=== PATIENT | male | born 1975 | race African-American/Black ===

== ENCOUNTER 2016-04-04 15:43 | Inpatient (IN) | payer MEDICARE, MEDICAID ==
[~2016-04-04] VITALS: Ht 170.2 cm; Wt 80.3 kg
[~2016-04-04 15:43] MED LIST: CHOL10002 PO; OLAN7.5T2 PO
[2016-04-04 17:12] VITALS: BP 104/60
[2016-04-04] MEDS ORDERED: HALOPERIDOL 5 MG TABLET PO PRN (17:15)
[2016-04-04] MEDS ORDERED: LORazepam 2 MG TABLET PO PRN (17:15)
[2016-04-04] MEDS ORDERED: -PHARMACY VACCINE NOTE- MISC ONE ×2 (19:45)
[2016-04-04] MEDS: DIVALPROEX SODIUM 500 MG DR TABLET PO SCH (20:44)
[2016-04-04] MEDS: OLANZapine 7.5 MG TABLET PO SCH (20:45)
[2016-04-05 07:00] VITALS: BP 119/60
[2016-04-05] MEDS: DIVALPROEX SODIUM 500 MG DR TABLET PO SCH ×2 (08:33→16:30)
[2016-04-05] MEDS ORDERED: BACITRACIN 28.4 GM OINTMENT TP PRN (10:15)
[2016-04-05] MEDS ORDERED: ONDANSETRON HCL 4 MG TABLET PO PRN (10:15)
[2016-04-05] MEDS ORDERED: MAG HYDROX/AL HYDROX/SIMETH ES 30 ML SUSPENSION UDCUP PO PRN (10:15)
[2016-04-05] MEDS ORDERED: IBUPROFEN 600 MG TABLET PO PRN (10:15)
[2016-04-05] MEDS ORDERED: MAGNESIUM HYDROXIDE SUSPENSION 30 ML UDCUP PO PRN (10:15)
[2016-04-05] MEDS ORDERED: LOPERAMIDE HCL 2 MG CAPSULE PO PRN (10:15)
[2016-04-05] MEDS ORDERED: BENZOCAINE/MENTHOL LOZENGE MM PRN (10:15)
[2016-04-05] MEDS ORDERED: CloNIDine HCL 0.1 MG TABLET PO PRN (10:15)
[2016-04-05] MEDS ORDERED: PETROLATUM,WHITE 71 GM JELLY TP PRN (10:15)
[2016-04-05] MEDS ORDERED: ACETAMINOPHEN 325 MG TABLET PO PRN (10:15)
[2016-04-05] MEDS ORDERED: ALBUTEROL SULFATE HFA 90 MCG/PUFF 8 GM INHALER IH PRN (10:15)
[2016-04-05 16:04] VITALS: BP 118/52
[2016-04-05] MEDS: OLANZapine 7.5 MG TABLET PO SCH (20:47)
[2016-04-06 02:15] VITALS: BP 108/60
[2016-04-06] MEDS: DIVALPROEX SODIUM 500 MG DR TABLET PO SCH ×2 (09:05→16:43)
[2016-04-06 16:12] VITALS: BP 100/60
[2016-04-06] MEDS: OLANZapine 7.5 MG TABLET PO SCH (20:21)
[2016-04-07 02:12] VITALS: BP 101/60
[2016-04-07 08:38] VITALS: BP 105/61
[2016-04-07] MEDS: DIVALPROEX SODIUM 500 MG DR TABLET PO SCH ×2 (09:25→16:20)
[2016-04-07 16:38] VITALS: BP 102/81
[2016-04-07] MEDS: OLANZapine 7.5 MG TABLET PO SCH (20:15)
[2016-04-07] MEDS: ZOLPIDEM TARTRATE 10 MG TABLET PO PRN (21:22)
[2016-04-08 06:57] VITALS: BP 108/61
[2016-04-08 08:35] VITALS: BP 104/61
[2016-04-08] MEDS: DIVALPROEX SODIUM 500 MG DR TABLET PO SCH ×2 (09:12→16:28)
[2016-04-08 16:10] VITALS: BP 102/63
[2016-04-08] MEDS: OLANZapine 7.5 MG TABLET PO SCH (20:27)
[2016-04-08] MEDS: ZOLPIDEM TARTRATE 10 MG TABLET PO PRN (21:13)
[2016-04-09 06:10] VITALS: BP 106/67
[2016-04-09 08:22] VITALS: BP 102/60
[2016-04-09] MEDS: DIVALPROEX SODIUM 500 MG DR TABLET PO SCH (08:52)
[2016-04-09] MEDS ORDERED: DIVA500T35 PO (11:17)
== END 2016-04-09 13:25 | disposition home or self-care (01) | DRG 885 ==
LOC: B2S 19:31 → EDSTATUS 20:08 → B2S 04-08 21:08
PROVIDERS: ADMIT Psychiatry & Neurology Psychiatry; ATTEND Psychiatry & Neurology Psychiatry
DX: F25.9 Schizoaffective disorder, unspecified (principal); K59.00 Constipation, unspecified; G47.00 Insomnia, unspecified; E55.9 Vitamin D deficiency, unspecified; F15.10 Other stimulant abuse, uncomplicated; R51 Headache; Z91.018 Allergy to other foods; Z56.0 Unemployment, unspecified; Z72.0 Tobacco use

== ENCOUNTER 2016-05-22 21:35 | Inpatient (IN) | payer MEDICARE, MEDICAID ==
[~2016-05-22] VITALS: Ht 180.3 cm; Wt 82.0 kg
[~2016-05-22 21:35] MED LIST changes: -CHOL10002 PO; +DIVA500T35 PO
[2016-05-22] MEDS ORDERED: LORazepam 2 MG TABLET PO PRN (22:15)
[2016-05-22 22:17] VITALS: BP 114/69
[2016-05-23 00:05] VITALS: BP 108/72
[2016-05-23] MEDS ORDERED: LOPERAMIDE HCL 2 MG CAPSULE PO PRN (08:00)
[2016-05-23] MEDS ORDERED: MAG HYDROX/AL HYDROX/SIMETH ES 30 ML SUSPENSION UDCUP PO PRN (08:00)
[2016-05-23] MEDS ORDERED: CloNIDine HCL 0.1 MG TABLET PO PRN (08:00)
[2016-05-23] MEDS ORDERED: BACITRACIN 28.4 GM OINTMENT TP PRN (08:00)
[2016-05-23] MEDS ORDERED: ONDANSETRON HCL 4 MG TABLET PO PRN (08:00)
[2016-05-23] MEDS ORDERED: IBUPROFEN 600 MG TABLET PO PRN (08:00)
[2016-05-23] MEDS ORDERED: ALBUTEROL SULFATE HFA 90 MCG/PUFF 8 GM INHALER IH PRN (08:00)
[2016-05-23] MEDS ORDERED: ACETAMINOPHEN 325 MG TABLET PO PRN (08:00)
[2016-05-23] MEDS ORDERED: PETROLATUM,WHITE 71 GM JELLY TP PRN (08:00)
[2016-05-23] MEDS ORDERED: BENZOCAINE/MENTHOL LOZENGE [8 LOZENGES/PACKET] MM PRN (08:00)
[2016-05-23] MEDS ORDERED: MAGNESIUM HYDROXIDE SUSPENSION 30 ML UDCUP PO PRN (08:00)
[2016-05-23 08:05] VITALS: BP 108/60
[2016-05-23] MEDS: CHOLECALCIFEROL (VIT D3) 1,000 UNITS TABLET PO SCH (08:45)
[2016-05-23] MEDS: DIVALPROEX SODIUM 500 MG ER TABLET PO SCH ×2 (08:45→16:14)
[2016-05-23 14:45] LABS: APPEARANCE,URINE CLEAR (CLEAR); GLUCOSE, URINE (UA) NEGATIVE (NEGATIVE); KETONES,URINE NEGATIVE (NEGATIVE); LEUKOCYTE ESTERASE ,URINE NEGATIVE (NEGATIVE); OCCULT BLOOD,URINE NEGATIVE (NEGATIVE); PROTEIN,URINE NEGATIVE (NEGATIVE)
[2016-05-23 14:47] LABS: ADD UA MICROSCOPIC NO
[2016-05-23 17:00] VITALS: BP 99/63
[2016-05-23] MEDS: OLANZapine 7.5 MG TABLET PO SCH (20:13)
[2016-05-23] MEDS: ZOLPIDEM TARTRATE 10 MG TABLET PO PRN (20:39)
[2016-05-24] MEDS: DIVALPROEX SODIUM 500 MG ER TABLET PO SCH ×2 (08:07→16:05)
[2016-05-24] MEDS: CHOLECALCIFEROL (VIT D3) 1,000 UNITS TABLET PO SCH (08:07)
[2016-05-24 09:42] VITALS: BP 106/59
[2016-05-24 16:25] VITALS: BP 105/63
[2016-05-24] MEDS: OLANZapine 7.5 MG TABLET PO SCH (20:10)
[2016-05-24] MEDS: ZOLPIDEM TARTRATE 10 MG TABLET PO PRN (20:55)
[2016-05-25 08:00] VITALS: BP 102/58
[2016-05-25] MEDS: CHOLECALCIFEROL (VIT D3) 1,000 UNITS TABLET PO SCH (09:37)
[2016-05-25] MEDS: DIVALPROEX SODIUM 500 MG ER TABLET PO SCH ×2 (09:37→17:40)
[2016-05-25 16:20] VITALS: BP 105/69
[2016-05-25] MEDS: OLANZapine 7.5 MG TABLET PO SCH (20:14)
[2016-05-25] MEDS: ZOLPIDEM TARTRATE 10 MG TABLET PO PRN (20:20)
[2016-05-26 08:05] VITALS: BP 101/68
[2016-05-26] MEDS: CHOLECALCIFEROL (VIT D3) 1,000 UNITS TABLET PO SCH (09:18)
[2016-05-26] MEDS: DIVALPROEX SODIUM 500 MG ER TABLET PO SCH ×2 (09:18→16:26)
[2016-05-26 16:10] VITALS: BP 93/58
[2016-05-26] MEDS: OLANZapine 7.5 MG TABLET PO SCH (20:20)
[2016-05-26] MEDS: ZOLPIDEM TARTRATE 10 MG TABLET PO PRN (20:20)
[2016-05-27 08:00] VITALS: BP 103/54
[2016-05-27] MEDS: DIVALPROEX SODIUM 500 MG ER TABLET PO SCH ×2 (09:38→17:03)
[2016-05-27] MEDS: CHOLECALCIFEROL (VIT D3) 1,000 UNITS TABLET PO SCH (09:38)
[2016-05-27 17:13] VITALS: BP 105/56
[2016-05-27] MEDS: OLANZapine 7.5 MG TABLET PO SCH (20:20)
[2016-05-27] MEDS: ZOLPIDEM TARTRATE 10 MG TABLET PO PRN (20:47)
[2016-05-28] MEDS: DIVALPROEX SODIUM 500 MG ER TABLET PO SCH ×2 (10:31→17:24)
[2016-05-28] MEDS: CHOLECALCIFEROL (VIT D3) 1,000 UNITS TABLET PO SCH (10:31)
[2016-05-28 16:13] VITALS: BP 114/70
[2016-05-28] MEDS ORDERED: DIVA500T52 PO (18:48)
[2016-05-28] MEDS ORDERED: VITAD1000 PO (18:50)
== END 2016-05-28 19:45 | disposition home or self-care (01) | DRG 885 ==
LOC: 3EX 22:13 → EDSTATUS 23:32
PROVIDERS: ADMIT Psychiatry & Neurology Child & Adolescent Psychiatry; ATTEND Psychiatry & Neurology Child & Adolescent Psychiatry
DX: F25.0 Schizoaffective disorder, bipolar type (principal); R45.851 Suicidal ideations; E55.9 Vitamin D deficiency, unspecified; F15.10 Other stimulant abuse, uncomplicated; K59.00 Constipation, unspecified; F17.200 Nicotine dependence, unspecified, uncomplicated; Z71.51 Drug abuse counseling and surveillance of drug abuser; Z71.6 Tobacco abuse counseling; Z91.018 Allergy to other foods; Z79.899 Other long term (current) drug therapy; Z59.0 Homelessness
CPT/HCPCS: J3535

== ENCOUNTER 2017-10-05 12:50 | Emergency (ER) | payer OTHER ==
[~2017-10-05] VITALS: Ht 180.3 cm; Wt 81.8 kg
[~2017-10-05 12:50] MED LIST changes: +CITA-106 PO; -DIVA500T35 PO; +DIVA500T52 PO; +HYDR-4031 PO; +VITAD1000 PO
[2017-10-05] MEDS ORDERED: LAMO25 PO (13:12)
[2017-10-05] MEDS ORDERED: BUSP5TAB20 PO (13:12)
[2017-10-05 14:10] VITALS: BP 113/73
== END 2017-10-05 14:57 | disposition home or self-care (01) ==
LOC: EMS 12:52
DX: F41.9 Anxiety disorder, unspecified (principal); F32.9 Major depressive disorder, single episode, unspecified; F15.90 Other stimulant use, unspecified, uncomplicated; F17.210 Nicotine dependence, cigarettes, uncomplicated; Z88.8 Allergy status to other drugs, medicaments and biological substances
CPT/HCPCS: 99281

== ENCOUNTER 2018-11-09 21:30 | Inpatient (IN) | payer MEDICARE, MEDICAID ==
[~2018-11-09] VITALS: Ht 180.3 cm; Wt 80.3 kg
[~2018-11-09 21:30] MED LIST changes: +BUSP5TAB20 PO; -CITA-106 PO; -DIVA500T52 PO; -HYDR-4031 PO; +LAMO25 PO; -VITAD1000 PO
[2018-11-09] MEDS ORDERED: HALOPERIDOL 5 MG TABLET PO PRN (21:45)
[2018-11-09 22:01] VITALS: BP 117/67
[2018-11-10 00:05] VITALS: BP 122/80
[2018-11-10] MEDS: LORazepam 2 MG TABLET PO PRN (00:16)
[2018-11-10] MEDS: ZOLPIDEM TARTRATE 10 MG TABLET PO PRN ×2 (02:31→20:54)
[2018-11-10] MEDS ORDERED: MAG HYDROX/AL HYDROX/SIMETH ES 30 ML SUSPENSION UDCUP PO PRN (06:45)
[2018-11-10] MEDS ORDERED: ONDANSETRON HCL 4 MG TABLET PO PRN (06:45)
[2018-11-10] MEDS ORDERED: MAGNESIUM HYDROXIDE SUSPENSION 30 ML UDCUP PO PRN (06:45)
[2018-11-10] MEDS ORDERED: GuaiFENesin/D-METHORPHAN [SUGAR-FREE] 200-20MG/10 ML SYRUP UDCUP PO PRN (06:45)
[2018-11-10] MEDS ORDERED: LOPERAMIDE HCL 2 MG CAPSULE PO PRN (06:45)
[2018-11-10] MEDS ORDERED: CloNIDine HCL 0.1 MG TABLET PO PRN (06:45)
[2018-11-10] MEDS ORDERED: PETROLATUM,WHITE 28 GM JELLY TP PRN (06:45)
[2018-11-10] MEDS ORDERED: NICOTINE 14 MG/24 HOUR PATCH TD PRN (06:45)
[2018-11-10] MEDS ORDERED: IBUPROFEN 400 MG TABLET PO PRN (06:45)
[2018-11-10] MEDS ORDERED: ACETAMINOPHEN 325 MG TABLET PO PRN (06:45)
[2018-11-10] MEDS ORDERED: ALBUTEROL SULFATE HFA 90 MCG/PUFF 8 GM INHALER IH PRN (06:45)
[2018-11-10] MEDS ORDERED: DOCUSATE SODIUM 100 MG CAPSULE PO PRN (06:45)
[2018-11-10 08:40] VITALS: BP 103/71
[2018-11-10 08:42] LABS: BASOPHILS % (AUTO) 1.1 % (0.0-2.0); EOSINOPHILS % (AUTO) 3.3 % (1.0-6.0); HEMOGLOBIN 16.5 g/dL (13.5-17.5); LYMPHOCYTES # (AUTO) 1.8 K/uL (1.0-4.8); LYMPHOCYTES % (AUTO) 27.9 % (22.0-44.0); MEAN CORPUSCULAR HEMOGLOBIN 31.3 pg (26.0-34.0); MEAN CORPUSCULAR HGB CONC 32.3 G/dL (31.0-37.0); MEAN CORPUSCULAR VOLUME 97 fL (80-100); MONOCYTES # (AUTO) 0.7 K/uL (0.1-1.0); MONOCYTES % (AUTO) 11.3 % (2.0-9.0); NEUTROPHILS # (AUTO) 3.7 K/uL (1.8-7.7); NEUTROPHILS % (AUTO) 56.4 % (40.0-70.0); PLATELET COUNT (AUTO) 234 K/uL (150-450); RED BLOOD CELL COUNT(AUTO) 5.27 MIL/uL (4.50-5.90); RED CELL DISTRIBUTION WIDTH 15.7 % (11.5-14.5)
[2018-11-10 09:07] LABS: ALANINE AMINOTRANSFERASE 156 U/L (12-78); ALKALINE PHOSPHATASE 60 U/L (46-116); ANION GAP 13 mmol/L (8-16); ASPARTATE AMINOTRANSFERASE 125 U/L (15-37); BILIRUBIN,TOTAL 0.4 mg/dL (0.1-1.0); CALCIUM, TOTAL 9.2 mg/dL (8.8-10.5); CARBON DIOXIDE 24 mmol/L (22-29); CHLORIDE 102 mmol/L (98-107); CHOL/HDL RATIO 3.8 (4.2-7.3); CHOLESTEROL 178 mg/dL (131-200); CREATININE 0.79 mg/dL (0.60-1.30); FREE T4 (FREE THYROXINE) 0.84 ng/dL (0.76-1.46); GLOMERULAR FILTR. RATE CALC > 60 mL/min (>60); GLUCOSE,RANDOM 86 mg/dL (70-110); HDL CHOLESTEROL 47 mg/dL (40-60); LDL CHOL (CALC.) 102 mg/dL (0-130); POTASSIUM 3.7 mmol/L (3.5-5.1); SODIUM SERUM 139 mmol/L (136-145); THYROID STIMULATING HORMONE 3.29 uIU/mL (0.36-3.74); TOTAL PROTEIN, SERUM 6.7 g/dL (6.4-8.2); TRIGLYCERIDES 146 mg/dL (15-150); UREA NITROGEN, BLOOD 8 mg/dL (7-18)
[2018-11-10 09:15] LABS: ALBUMIN 3.1 g/dL (3.4-5.0)
[2018-11-10] MEDS: LamoTRIgine 25 MG TABLET PO SCH (12:29)
[2018-11-10] MEDS: BusPIRone HCL 15 MG TABLET PO SCH ×2 (12:29→16:59)
[2018-11-10 16:12] VITALS: BP 104/69
[2018-11-10] MEDS: OLANZapine 10 MG TABLET PO SCH (20:45)
[2018-11-11 01:05] VITALS: BP 101/60
[2018-11-11 08:05] VITALS: BP 116/67
[2018-11-11] MEDS: LamoTRIgine 25 MG TABLET PO SCH (08:25)
[2018-11-11] MEDS: BusPIRone HCL 15 MG TABLET PO SCH ×3 (08:25→16:19)
[2018-11-11 16:05] VITALS: BP 120/72
[2018-11-11] MEDS: OLANZapine 10 MG TABLET PO SCH (20:04)
[2018-11-11] MEDS: ZOLPIDEM TARTRATE 10 MG TABLET PO PRN (21:06)
[2018-11-12 02:18] VITALS: BP 109/68
[2018-11-12] MEDS: LORazepam 2 MG TABLET PO PRN (05:16)
[2018-11-12 08:37] VITALS: BP 103/58
[2018-11-12] MEDS: BusPIRone HCL 15 MG TABLET PO SCH ×3 (09:22→16:06)
[2018-11-12] MEDS: LamoTRIgine 25 MG TABLET PO SCH (09:22)
[2018-11-12 16:28] VITALS: BP 105/66
[2018-11-12] MEDS: MIRTAZAPINE 15 MG TABLET PO SCH (20:05)
[2018-11-12] MEDS: OLANZapine 10 MG TABLET PO SCH (20:05)
[2018-11-13 00:50] VITALS: BP 110/68
[2018-11-13] MEDS: LORazepam 2 MG TABLET PO PRN (05:15)
[2018-11-13] MEDS: LamoTRIgine 25 MG TABLET PO SCH (09:02)
[2018-11-13] MEDS: BusPIRone HCL 15 MG TABLET PO SCH ×2 (09:03→16:28)
[2018-11-13] MEDS: SERTRALINE HCL 50 MG TABLET PO SCH (09:03)
[2018-11-13 12:56] VITALS: BP 107/58
[2018-11-13] MEDS ORDERED: BusPIRone HCL 10 MG TABLET PO SCH (13:00)
[2018-11-13 16:17] VITALS: BP 102/57
[2018-11-13] MEDS: MIRTAZAPINE 15 MG TABLET PO SCH (20:30)
[2018-11-13] MEDS: OLANZapine 7.5 MG TABLET PO SCH (20:30)
[2018-11-14 08:04] VITALS: BP 105/66
[2018-11-14] MEDS: BusPIRone HCL 15 MG TABLET PO SCH ×3 (08:26→16:29)
[2018-11-14] MEDS: SERTRALINE HCL 50 MG TABLET PO SCH (08:26)
[2018-11-14] MEDS: LamoTRIgine 25 MG TABLET PO SCH (08:26)
[2018-11-14] MEDS ORDERED: MIRT15 PO (13:57)
[2018-11-14] MEDS ORDERED: BUSP15 PO (13:57)
[2018-11-14] MEDS ORDERED: OLAN7.5T2 PO (13:57)
[2018-11-14] MEDS ORDERED: SERT50TA12 PO (13:57)
[2018-11-14] MEDS ORDERED: LAMO25 PO (13:57)
[2018-11-14] MEDS: LORazepam 2 MG TABLET PO PRN (15:07)
[2018-11-14 17:03] VITALS: BP 105/66
[2018-11-14] MEDS: OLANZapine 7.5 MG TABLET PO SCH (20:44)
[2018-11-14] MEDS: MIRTAZAPINE 15 MG TABLET PO SCH (20:44)
[2018-11-15 01:44] VITALS: BP 100/60
[2018-11-15 08:16] VITALS: BP 109/66
[2018-11-15] MEDS: LamoTRIgine 25 MG TABLET PO SCH ×2 (08:19→16:31)
[2018-11-15] MEDS: SERTRALINE HCL 50 MG TABLET PO SCH (08:19)
[2018-11-15] MEDS: BusPIRone HCL 15 MG TABLET PO SCH ×2 (08:19→12:02)
[2018-11-15] MEDS: HydrOXYzine PAMOATE 25 MG CAPSULE PO SCH ×2 (13:00→16:30)
[2018-11-15] MEDS ORDERED: BusPIRone HCL 10 MG TABLET PO SCH (13:00)
[2018-11-15 16:05] VITALS: BP 112/61
[2018-11-15] MEDS: BusPIRone HCL 10 MG TABLET PO SCH (16:30)
[2018-11-15] MEDS ORDERED: OLANZapine 10 MG TABLET PO SCH (21:00)
[2018-11-15] MEDS ORDERED: MIRTAZAPINE 15 MG TABLET PO SCH (21:00)
[2018-11-16 03:50] VITALS: BP 119/81
[2018-11-16] MEDS: LORazepam 2 MG TABLET PO PRN (04:55)
[2018-11-16 08:42] VITALS: BP 127/67
[2018-11-16] MEDS ORDERED: SERTRALINE HCL 100 MG TABLET PO SCH (09:00)
[2018-11-16] MEDS: LamoTRIgine 25 MG TABLET PO SCH (09:21)
[2018-11-16] MEDS: BusPIRone HCL 10 MG TABLET PO SCH (09:21)
[2018-11-16] MEDS: HydrOXYzine PAMOATE 25 MG CAPSULE PO SCH (09:21)
[2018-11-16] MEDS ORDERED: HYDR-4031 PO (10:03)
== END 2018-11-16 13:30 | disposition home or self-care (01) | DRG 885 ==
LOC: B2X 21:58
PROVIDERS: ADMIT Psychiatry & Neurology Psychiatry; ATTEND Psychiatry & Neurology Psychiatry
DX: F25.9 Schizoaffective disorder, unspecified (principal); D64.9 Anemia, unspecified; E55.9 Vitamin D deficiency, unspecified; F17.200 Nicotine dependence, unspecified, uncomplicated; I10 Essential (primary) hypertension; K59.00 Constipation, unspecified; F19.10 Other psychoactive substance abuse, uncomplicated; R74.0 Nonspecific elevation of levels of transaminase and lactic acid dehydrogenase [LDH]; Z79.899 Other long term (current) drug therapy; Z71.6 Tobacco abuse counseling
CPT/HCPCS: 83036; 84439; 84443

== ENCOUNTER 2023-07-20 21:36 | Emergency (ER) | payer MEDICARE, OTHER ==
[~2023-07-20] VITALS: Ht 180.3 cm; Wt 84.1 kg
[~2023-07-20 21:36] MED LIST changes: +BUSP15 PO; -BUSP5TAB20 PO; +HYDR-4808 PO; -LAMO25 PO; +LAMO25TA36 PO; +MIRT-89 PO; -OLAN7.5T2 PO; +OLAN7.5T22 PO; +SERT-158 PO
[2023-07-20 22:05] VITALS: TEMP 98.4
[2023-07-21 03:22] LABS: BASOPHILS % (AUTO) 0.9 % (0.0-2.0); EOSINOPHILS % (AUTO) 4.8 % (1.0-6.0); HEMATOCRIT 40.3 % (41-53); HEMOGLOBIN 13.7 g/dL (13.5-17.5); LYMPHOCYTES # (AUTO) 2.6 K/uL (1.0-4.8); LYMPHOCYTES % (AUTO) 29.8 % (22.0-44.0); MEAN CORPUSCULAR HEMOGLOBIN 30.5 pg (26.0-34.0); MEAN CORPUSCULAR VOLUME 90 fL (80-100); MONOCYTES # (AUTO) 0.7 K/uL (0.1-1.0); NEUTROPHILS % (AUTO) 56.5 % (40.0-70.0); PLATELET COUNT (AUTO) 236 K/uL (150-450); RED BLOOD CELL COUNT(AUTO) 4.49 MIL/uL (4.50-5.90); RED CELL DISTRIBUTION WIDTH 13.8 % (11.5-14.5); WHITE BLOOD COUNT (AUTO) 8.8 K/uL (4.5-11.0)
[2023-07-21 03:36] LABS: ANION GAP 8 mmol/L (8-16); CALCIUM, TOTAL 8.8 mg/dL (8.8-10.5); CARBON DIOXIDE 27 mmol/L (22-29); CHLORIDE 103 mmol/L (98-107); CREATININE 0.89 mg/dL (0.60-1.30); GLOMERULAR FILTR. RATE CALC > 60 mL/min (>60); GLUCOSE,RANDOM 115 mg/dL (70-110); SODIUM SERUM 138 mmol/L (136-145); UREA NITROGEN, BLOOD 19 mg/dL (7-18)
[2023-07-21 03:41] LABS: ALANINE AMINOTRANSFERASE 23 U/L (12-78); ALBUMIN 3.6 g/dL (3.4-5.0); ALKALINE PHOSPHATASE 46 U/L (46-116); ASPARTATE AMINOTRANSFERASE 22 U/L (15-37); BILIRUBIN,TOTAL 0.1 mg/dL (0.1-1.0); TOTAL PROTEIN, SERUM 7.6 g/dL (6.4-8.2); TROPONIN I-HIGH SENSITIVITY 5 ng/L (<76)
[2023-07-21 03:54] LABS: APPEARANCE,URINE CLEAR (CLEAR); BILIRUBIN,URINE NEGATIVE (NEGATIVE); COLOR,URINE LIGHT YELLOW (YELLOW); GLUCOSE, URINE (UA) NEGATIVE (NEGATIVE); KETONES,URINE NEGATIVE (NEGATIVE); LEUKOCYTE ESTERASE ,URINE NEGATIVE (NEGATIVE); NITRATE,URINE NEGATIVE (NEGATIVE); PH,URINE 5.5 (5.0-8.0); PH,URINE DRUG SCREEN 5.5 (5.0-8.0); PROTEIN,URINE NEGATIVE (NEGATIVE); SPECIFIC GRAVITIY, URINE 1.018 (1.003-1.030); UROBILINOGEN,URINE <=1.0 mg/dL (<=1.0)
[2023-07-21 03:58] LABS: OCCULT BLOOD,URINE NEGATIVE (NEGATIVE)
[2023-07-21 03:59] LABS: ALCOHOL, URINE DRUG SCREEN NEGATIVE (NEGATIVE); AMPHET/METH SCREEN,URINE NEGATIVE (NEGATIVE); BARBITURATE SCREEN, URINE NEGATIVE (NEGATIVE); BENZODIAZEPINES SCREEN,URINE NEGATIVE (NEGATIVE); CANNABINOID SCREEN,URINE NEGATIVE (NEGATIVE); COCAINE SCREEN,URINE NEGATIVE (NEGATIVE); METHADONE SCREEN, URINE NEGATIVE (NEGATIVE); OPIATE SCREEN,URINE NEGATIVE (NEGATIVE); PHENCYCLIDINE SCREEN,URINE NEGATIVE (NEGATIVE)
[2023-07-21 11:44] VITALS: BP 101/63; PULSE 59; RESP 16
== END 2023-07-21 14:56 | disposition home or self-care (01) ==
LOC: EMS 21:43
DX: F25.0 Schizoaffective disorder, bipolar type (principal); F32.A Depression, unspecified; F17.210 Nicotine dependence, cigarettes, uncomplicated; F15.90 Other stimulant use, unspecified, uncomplicated
CPT/HCPCS: 80053; 80307; 81003; 84484; 85025; 93005; 99284